=== PATIENT | male | born 1980 | race Caucasian/White ===

== ENCOUNTER 2019-08-14 16:49 | Emergency (ER) | payer OTHER ==
[~2019-08-14] VITALS: Ht 177.8 cm; Wt 133.6 kg
[2019-08-14] MEDS ORDERED: ATORVASTATIN CA20 MG PO (16:56)
[2019-08-14 17:27] LABS: EOS # 0.2 (0.04-0.40); EOS % 1.7 % (0.0-4.0); HEMATOCRIT 42.1 % (42.0-52.0); HEMOGLOBIN 14.4 g/dL (13.5-18.0); LYMPH# 2.4 (1.50-4.00); MEAN CELL VOLUME 85 fl (78-100); MEAN CORPUSCULAR HEMOGLOBIN 29 pg (27-31); MEAN CORPUSCULAR HGB CONC 34 g/dL (33-37); MEAN PLATELET VOLUME 9.1 fl (7.4-10.4); MONO # 0.7 (0.20-0.80); NEU # 5.7 (1.40-6.50); PLATELET COUNT 313 K/mm3 (130-400); RED BLOOD COUNT 4.97 M/mm3 (4.20-5.60); RED CELL DISTRIBUTION WIDTH 12.6 % (11.5-14.5)
[2019-08-14 17:32] LABS: ALBUMIN 4.6 g/dL (3.5-5.0); POTASSIUM 3.5 mmol/L (3.5-5.1)
[2019-08-14 17:33] LABS: CALCIUM 9.2 mg/dL (8.3-10.5)
[2019-08-14 17:34] LABS: TOTAL PROTEIN 7.5 g/dL (6.4-8.3)
[2019-08-14 17:36] LABS: TOTAL BILIRUBIN 0.7 mg/dL (0.2-1.2)
[2019-08-14 18:10] LABS: PH-URINE 6.5 (5.0 - 8.0); URINE APPEARANCE CLOUDY; URINE BILIRUBIN NEGATIVE (NEGATIVE); URINE BLOOD NEGATIVE (NEGATIVE); URINE COLOR YELLOW; URINE GLUCOSE NEGATIVE (NEGATIVE); URINE KETONE NEGATIVE (NEGATIVE); URINE LEUKOCYTE ESTERASE NEGATIVE (NEGATIVE); URINE NITRATE NEGATIVE (NEGATIVE); URINE PROTEIN(semi-quant) TRACE mg/dL (NEGATIVE); URINE UROBILINOGEN NORMAL (NORMAL)
[2019-08-14] MEDS ORDERED: PROTONIX20 M1 PO (19:03)
[2019-08-14] MEDS ORDERED: ZOFRAN4 M2 PO (19:03)
[2019-08-14 19:50] VITALS: BP 145/78
== END 2019-08-14 19:50 | disposition home or self-care (01) ==
LOC: ED 16:49
PROVIDERS: Nurse Practitioner Primary Care
DX: K29.00 Acute gastritis without bleeding (principal)
CPT/HCPCS: C9113; J1885; J2270; Q9967